=== PATIENT | male | born 1970 | race Two or more races ===

== ENCOUNTER 2017-03-30 22:01 | Emergency (ER) | payer MEDICAID ==
[2017-03-30] MEDS ORDERED: ZYRTEC10 M7 PO (22:26)
[2017-03-30] MEDS ORDERED: PREDNISONE20 M1 PO (23:18)
[2017-03-30] MEDS ORDERED: TESSALON PERLE100 M1 PO (23:18)
[2017-04-04] MEDS ORDERED: AZITHROMYCIN250 M1 PO (21:04)
== END 2017-03-30 23:25 ==
LOC: EDMED 22:01
DX: J20.9 Acute bronchitis, unspecified (principal)
CPT/HCPCS: J7512